=== PATIENT | female | born 1945 | race Caucasian/White ===

== ENCOUNTER 2017-03-29 09:44 | Observation (INO) | payer OTHER ==
[2017-03-29] VITALS (7 sets, daily range): BP systolic 138–183; BP diastolic 62–79; PULSE 68–78; RESP 15–20; TEMP 97.9–98.6; O2SAT 95–98
[~2017-03-29] VITALS: Ht 160 cm; Wt 94.0 kg
[~2017-03-29 09:44] MED LIST: CITRTAB16 PO; GABA100C4 PO; GLUCTAB PO; LOSA25TA31 PO; MULT-65 PO; ONDA1TAB16 PO; TRAM50 PO
[2017-03-29] MEDS ORDERED: LOSA50TA PO (09:57)
[2017-03-29] MEDS ORDERED: ZETI10TA5 PO (09:57)
[2017-03-29] MEDS ORDERED: REST15CA PO (09:57)
[2017-03-29] MEDS ORDERED: ASPIRIN 81 MG CHEW TAB PO ONE (10:00)
[2017-03-29] MEDS ORDERED: SODIUM CHLORIDE 0.9% FLUSH 10 ML FLUSH IVF PRN (10:00)
--- NOTE | 2017-03-29 10:05 | PD ---
HPI . Chest pain shortness of breath Chief Complaint: Chest Pain Time Seen by Provider: 09:51 Travel History International Travel<30 days: No Contact w/Intl Traveler<30days: No Traveled to known affect area: No History of Present Illness HPI This patient presents with the chief complaint of chest pain and shortness of breath. Onset was shortly prior to presentation while doing her normal activities. She described a pressure in her chest which she rated 10/10 and which was associated with shortness of breath, paleness and diaphoresis. She took 2 sublingual nitroglycerin with complete relief of her symptoms. The patient reports episodic chest pain for the past 10 years. She states that she has had 2 negative stress test. She has not glycerin at home that she uses as needed. She states that she normally needs to use nitroglycerin every couple weeks or so. However, over the last 2 weeks, her chest pain has escalated and she is using nitroglycerin daily. The patient states that she takes aspirin but that her last dose of aspirin was a couple of weeks ago. PFSH Past Medical History Cancer: Yes (Endometrial) High Cholesterol: Yes Diabetes: Yes Hypertension: Yes Immunizations Current: Yes : 5 Para: 4 Miscarriage: 1 Dilation and Curettage (D&C): Yes Past Surgical History Hysterectomy: Yes Tonsillectomy: Yes (T&A) Social History Alcohol Use: Yes (Rarely) Tobacco Use: No (Quit 1975) Substance Use: No Allergies-Medications (Allergen,Severity, Reaction): Coded Allergies: acetaminophen (Unverified Allergy, Severe, Itching, 03/29/17) hydrocodone (Unverified Allergy, Severe, Itching, 03/29/17) penicillin G (Unverified Allergy, Severe, Rash, 03/29/17) Reported Meds & Prescriptions Reported Meds & Active Scripts Active Reported Restoril (Temazepam) 15 Mg Cap 15 Mg PO HS PRN Zetia (Ezetimibe) 10 Mg Tab 10 Mg PO DAILY Losartan (Losartan Potassium) 50 Mg Tab 50 Mg PO HS Review of Systems Except as stated in HPI: all other systems reviewed are Neg General / Constitutional: Positive: Other (diaphoresis) Cardiovascular: Positive: Chest Pain or Discomfort Respiratory: Positive: Shortness of Breath Skin: Positive Other (pale) Physical Exam Narrative GENERAL: Patient is awake and alert and in no acute distress. SKIN: warm/dry. Good color. HEAD: Normocephalic. Atraumatic. EYES: Pupils equal and round. No scleral icterus. No injection or drainage. ENT: No nasal bleeding or discharge. Mucous membranes pink and moist. NECK: Trachea midline. Full range of motion without pain.. CARDIOVASCULAR: Regular rate and rhythm. Heart sounds are normal. RESPIRATORY: No accessory muscle use. Clear to auscultation. Breath sounds equal bilaterally. Chest wall is nontender. GASTROINTESTINAL: Abdomen soft. Nontender. Bowel sounds present. Nondistended. MUSCULOSKELETAL: No obvious deformities. NEUROLOGICAL: Awake and alert. No obvious cranial nerve deficits. Motor grossly within normal limits. Normal speech. PSYCHIATRIC: Appropriate mood and affect; insight and judgment normal. Data Data Orders Orders Electrocardiogram (03/29/17 09:51) Basic Metabolic Panel (Bmp) (03/29/17 09:51) Ckmb (Isoenzyme) Profile (03/29/17 09:51) Complete Blood Count With Diff (03/29/17 09:51) Magnesium (Mg) (03/29/17 09:51) Prothrombin Time / Inr (Pt) (03/29/17 09:51) Act Partial Throm Time (Ptt) (03/29/17 09:51) Troponin I (03/29/17 09:51) Chest, Single Ap (03/29/17 09:51) Ecg Monitoring (03/29/17 09:51) Iv Access Insert/Monitor (03/29/17 09:51) Oximetry (03/29/17 09:51) Aspirin Chew (Aspirin Chew) (03/29/17 10:00) Sodium Chloride 0.9% Flush (Ns Flush) (03/29/17 10:00) CKMB (03/29/17 09:54) CKMB% (03/29/17 09:54) Labs Laboratory Tests Test 03/29/17 09:54 White Blood Count 7.2 TH/MM3 Red Blood Count 4.96 MIL/MM3 Hemoglobin 14.4 GM/DL Hematocrit 42.3 % Mean Corpuscular Volume 85.4 FL Mean Corpuscular Hemoglobin 29.1 PG Mean Corpuscular Hemoglobin Concent 34.1 % Red Cell Distribution Width 13.4 % Platelet Count 204 TH/MM3 Mean Platelet Volume 9.7 FL Neutrophils (%) (Auto) 60.6 % Lymphocytes (%) (Auto) 32.0 % Monocytes (%) (Auto) 4.9 % Eosinophils (%) (Auto) 1.8 % Basophils (%) (Auto) 0.7 % Neutrophils # (Auto) 4.4 TH/MM3 Lymphocytes # (Auto) 2.3 TH/MM3 Monocytes # (Auto) 0.3 TH/MM3 Eosinophils # (Auto) 0.1 TH/MM3 Basophils # (Auto) 0.0 TH/MM3 CBC Comment DIFF FINAL Differential Comment Prothrombin Time 10.5 SEC Prothromb Time International Ratio 1.0 RATIO Activated Partial Thromboplast Time 23.8 SEC Blood Urea Nitrogen 32 MG/DL Creatinine 1.23 MG/DL Random Glucose 211 MG/DL Calcium Level 9.5 MG/DL Magnesium Level 2.2 MG/DL Sodium Level 138 MEQ/L Potassium Level 4.4 MEQ/L Chloride Level 102 MEQ/L Carbon Dioxide Level 29.9 MEQ/L Anion Gap 6 MEQ/L Estimat Glomerular Filtration Rate 43 ML/MIN Total Creatine Kinase 105 U/L Creatine Kinase MB 1.3 NG/ML Troponin I LESS THAN 0.02 NG/ML MDM Medical Decision Making Medical Screen Exam Complete: Yes Emergency Medical Condition: Yes Medical Record Reviewed: Yes (the patient does not have any cardiovascular records in our system. No old EKG for comparison. Her listed medical problems include HTN, DM and HL.) Interpretation(s) EKG shows a sinus rhythm with no ST segment elevation or depression. Differential Diagnosis Differential diagnosis of chest pain includes but is not limited to musculoskeletal pain, pulmonary embolism, acute coronary syndrome, pneumonia, pleurisy Narrative Course This patient presents with escalating chest pain over the course of last couple of weeks. Her chest pain sounds like typical cardiac chest pain. She describes a pressure-like sensation which is associated occasionally with shortness of breath, diaphoresis and paleness. My plan will be to rule her out here in the emergency department and then admit her to the chest pain center for further evaluation assuming her initial evaluation is negative. CBC & BMP Diagram 03/29/17 09:54 Calcium Level 9.5, Magnesium Level 2.2 trop < 0.02 Diagnosis Primary Impression: Chest pain Qualified Codes: R07.9 - Chest pain, unspecified Admitting Information Admitting Physician Requests: Observation Condition: Stable Shelia Valera MD Mar 29, 2017 10:05
[2017-03-29 10:29] LABS: AUTOMATED NEUTROPHIL # 4.4 TH/MM3 (1.8-7.7); BASOPHIL % 0.7 % (0.0-2.0); EOSINOPHIL # 0.1 TH/MM3 (0-0.4); EOSINOPHIL % 1.8 % (0.0-4.0); HEMATOCRIT 42.3 % (35.0-46.0); HEMOGLOBIN 14.4 GM/DL (11.6-15.3); LYMPHOCYTE # 2.3 TH/MM3 (1.0-4.8); MEAN CELL VOLUME 85.4 FL (80.0-100.0); MEAN CORPUSCULAR HEMOGLOBIN 29.1 PG (27.0-34.0); MEAN CORPUSCULAR HGB CONC 34.1 % (32.0-36.0); MEAN PLATELET VOLUME 9.7 FL (7.0-11.0); MONO % 4.9 % (0.0-8.0); MONOCYTE # 0.3 TH/MM3 (0-0.9); NEUT % 60.6 % (16.0-70.0); PLATELET COUNT 204 TH/MM3 (150-450); RED BLOOD COUNT 4.96 MIL/MM3 (4.00-5.30); RED CELL DISTRIBUTION WIDTH 13.4 % (11.6-17.2); WHITE BLOOD COUNT 7.2 TH/MM3 (4.0-11.0)
[2017-03-29 10:33] LABS: PROTHROMBIN TIME - PATIENT 10.5 SEC (9.8-11.6)
--- NOTE | 2017-03-29 10:33 | RADRPT ---
EXAM DATE/TIME: 03/29/2017 10:54 [facility] COMPARISON: No previous studies available for comparison. INDICATIONS : Chest pain. MEDICAL HISTORY : None. SURGICAL HISTORY : None. ENCOUNTER: Initial ACUITY: 1 day PAIN SCORE: 6/10 LOCATION: Bilateral chest FINDINGS: A single view of the chest demonstrates the lungs to be symmetrically aerated without evidence of mas s, infiltrate or effusion. The cardiomediastinal contours are unremarkable. Osseous structures are intact. CONCLUSION: No acute disease. Nicholas Fan MD on March 29, 2017 at 10:31 Board Certified Radiologist. This report was verified electronically.
[2017-03-29 10:49] LABS: TROPONIN I LESS THAN 0.02 NG/ML (0.02-0.05)
[2017-03-29 11:08] LABS: BICARBONATE 29.9 MEQ/L (21.0-32.0); BLOOD UREA NITROGEN 32 MG/DL (7-18); CALCIUM 9.5 MG/DL (8.5-10.1); CHLORIDE 102 MEQ/L (98-107); CREATININE 1.23 MG/DL (0.50-1.00); GLOMERULAR FILTRATION RATE 43 ML/MIN (>89); GLUCOSE,RANDOM 211 MG/DL (74-106); MAGNESIUM 2.2 MG/DL (1.5-2.5); SODIUM (NA) 138 MEQ/L (136-145)
[2017-03-29] MEDS ORDERED: NITROGLYCERIN 0.4 MG SL 25 TABS/BTL SL PRN (11:45)
[2017-03-29] MEDS ORDERED: ONDANSETRON HCL 4 MG/2 ML VIAL IV PUSH PRN (11:45)
[2017-03-29] MEDS ORDERED: DEXTROSE 50% IN WATER 50 ML VIAL(D50) IV PUSH PRN (12:00)
[2017-03-29] MEDS ORDERED: GLUCAGON 1 MG/ML VIAL OTHER PRN (12:00)
[2017-03-29] MEDS: INSULIN ASPART SUPPLEMENTAL SCALE SQ SCH ×3 (12:00→21:00)
[2017-03-29] MEDS ORDERED: SODIUM CHLORID 0.9% 500 ML INJ 500 ML IV SCH (12:00)
[2017-03-29] MEDS ORDERED: TRAM50TA PO (12:24)
[2017-03-29] MEDS ORDERED: NITROGLYCERIN 2% OINT 1 GM PACKET TOPICAL ONE (12:30)
[2017-03-29 14:15] LABS: TROPONIN I 0.03 NG/ML (0.02-0.05)
[2017-03-29 14:47] LABS: TROPONIN I 0.03 NG/ML (0.02-0.05)
--- NOTE | 2017-03-29 14:51 | PD.CARD.PN ---
Subjective Subjective Remarks 71 YO LADY WITH VERY SUGGESTIVE HISTORY FOR UNSTABLE ANGINA. SHE HAS BEEN HAVING SOME CHEST DISCOMFORT OVER THE LAST SEVERAL WEEKS BUT THIS HAS NOT BEEN CLEARLY RELATED TO EXERTION ALTHOUGH SHE DOES FEEL STRESS HAS PLAYED A ROLE. HOWEVER, TODAY AFTER CLEANING THE HOUSE SHE WAS GETTING INTO THE SHOWER SHE DEVELOPED CRUSHING MID CHEST PAIN, FELT DIZZY, NAUSEAS, AND BROKE OUT IN A DRENCHING COLD SWEAT. SHE TOOK NTG WITHOUT RELIEF AND CALLED [facility]. SHE HAD A CATH ABOUT 10 YEARS AGO AND WAS TOLD SHE HAD SOME MILD BLOCKAGE IN THE LEFT LOWER PART BUT SHE HAD A TREADMILL ABOUT 6 YEARS AGO AND WAS TOLD IT WAS OK CRF DM Objective Medications Current Medications Medications (Trade) Dose Ordered Sig/Nesha Route Start Time Stop Time Status Last Admin (NS Flush) 2 ml UNSCH PRN IVF 03/29/17 10:00 (NS Flush) 2 ml BID IV FLUSH 03/29/17 21:00 (Zofran Inj) 4 mg Q6H PRN IV PUSH 03/29/17 11:45 (Nitrostat Sl) 0.4 mg Q5M PRN SL 03/29/17 11:45 (Aspirin) 325 mg DAILY PO 03/30/17 09:00 Sodium Chloride 500 ml @ 100 mls/hr Q5H IV 03/29/17 12:00 03/29/17 16:59 03/29/17 13:01 (D50w (Vial) Inj) 50 ml UNSCH PRN IV PUSH 03/29/17 12:00 (Glucagon Inj) 1 mg UNSCH PRN OTHER 03/29/17 12:00 (NovoLOG SUPPLEMENTAL SCALE) 1 ACHS SLIDING SCALE SQ 03/29/17 12:00 (Zetia) 10 mg DAILY PO 03/29/17 21:00 (Cozaar) 50 mg HS PO 03/29/17 21:00 Vital Signs / I&O Vital Signs Date Time Temp Pulse Resp B/P (MAP) Pulse Ox O2 Delivery O2 Flow Rate FiO2 03/29/17 13:10 97.9 68 16 163/74 (103) 95 03/29/17 12:10 03/29/17 11:38 74 15 138/ 97 Room Air 03/29/17 09:50 97.9 78 16 183/79 (113) 96 Room Air Physical Exam PERTINENT: SOFT 2/6 SYST M TRACE EDEMA NEUROPATHY Laboratory Laboratory Tests Test 03/29/17 09:54 03/29/17 12:55 03/29/17 14:02 White Blood Count 7.2 TH/MM3 Red Blood Count 4.96 MIL/MM3 Hemoglobin 14.4 GM/DL Hematocrit 42.3 % Mean Corpuscular Volume 85.4 FL Mean Corpuscular Hemoglobin 29.1 PG Mean Corpuscular Hemoglobin Concent 34.1 % Red Cell Distribution Width 13.4 % Platelet Count 204 TH/MM3 Mean Platelet Volume 9.7 FL Neutrophils (%) (Auto) 60.6 % Lymphocytes (%) (Auto) 32.0 % Monocytes (%) (Auto) 4.9 % Eosinophils (%) (Auto) 1.8 % Basophils (%) (Auto) 0.7 % Neutrophils # (Auto) 4.4 TH/MM3 Lymphocytes # (Auto) 2.3 TH/MM3 Monocytes # (Auto) 0.3 TH/MM3 Eosinophils # (Auto) 0.1 TH/MM3 Basophils # (Auto) 0.0 TH/MM3 CBC Comment DIFF FINAL Differential Comment Prothrombin Time 10.5 SEC Prothromb Time International Ratio 1.0 RATIO Activated Partial Thromboplast Time 23.8 SEC Blood Urea Nitrogen 32 MG/DL Creatinine 1.23 MG/DL Random Glucose 211 MG/DL Calcium Level 9.5 MG/DL Magnesium Level 2.2 MG/DL Sodium Level 138 MEQ/L Potassium Level 4.4 MEQ/L Chloride Level 102 MEQ/L Carbon Dioxide Level 29.9 MEQ/L Anion Gap 6 MEQ/L Estimat Glomerular Filtration Rate 43 ML/MIN Total Creatine Kinase 105 U/L 94 U/L Creatine Kinase MB 1.3 NG/ML Troponin I LESS THAN 0.02 NG/ML 0.03 NG/ML Imaging Last 24 hours Impressions Chest X-Ray 03/29/17 0951 Signed Impressions: Service Date/Time: Wednesday, March 29, 2017 10:54 - CONCLUSION: No acute disease. Nicholas Fan MD Assessment and Plan Problem List: (1) Chest pain at rest ICD Codes: R07.9 - Chest pain, unspecified (2) Diabetes ICD Codes: E11.9 - Type 2 diabetes mellitus without complications (3) Renal failure ICD Codes: N19 - Unspecified kidney failure (4) Neuropathy ICD Codes: G62.9 - Polyneuropathy, unspecified Assessment and Plan NEW ONSET OF CP SUGGESTIVE OF ANGINA DM CRF Code Status FULL CODE Discussed Condition With PATIENT Wojciech Pimentel MD Mar 29, 2017 14:51
[2017-03-29] MEDS ORDERED: traMADol HCL 50 MG TAB PO PRN (15:30)
[2017-03-29] MEDS ORDERED: TEMAZEPAM 15 MG CAP PO PRN (15:30)
[2017-03-29 16:53] LABS: TROPONIN I 0.03 NG/ML (0.02-0.05)
--- NOTE | 2017-03-29 20:37 | EKG ---
Date Performed: 03/29/2017 Time Performed: 09:58:30 PTAGE: 71 years EKG: Sinus rhythm NORMAL ECG NO PREVIOUS TRACING DOCTOR: Triny Carey Interpretating Date/Time 03/29/2017 20:36:11
--- NOTE | 2017-03-29 20:37 | EKG ---
Date Performed: 03/29/2017 Time Performed: 09:58:30 PTAGE: 71 years EKG: Sinus rhythm NORMAL ECG NO PREVIOUS TRACING DOCTOR: Triny Carey Interpretating Date/Time 03/29/2017 20:36:11
--- NOTE | 2017-03-29 20:37 | EKG ---
Date Performed: 03/29/2017 Time Performed: 09:58:30 PTAGE: 71 years EKG: Sinus rhythm NORMAL ECG NO PREVIOUS TRACING DOCTOR: Triny Carey Interpretating Date/Time 03/29/2017 20:36:11
[2017-03-29] MEDS ORDERED: LOSARTAN 50 MG TAB PO SCH (21:00)
[2017-03-29] MEDS: SODIUM CHLORIDE 0.9% FLUSH 10 ML FLUSH IV FLUSH SCH (21:01)
[2017-03-29] MEDS: EZETIMIBE 10 MG TAB PO SCH (21:02)
[2017-03-29] MEDS: NITROGLYCERIN 2% OINT 1 GM PACKET TOPICAL SCH (21:02)
[2017-03-30] MEDS: NITROGLYCERIN 2% OINT 1 GM PACKET TOPICAL SCH ×2 (03:15→06:00)
[2017-03-30 06:57] LABS: BICARBONATE 25.8 MEQ/L (21.0-32.0); CALCIUM 8.6 MG/DL (8.5-10.1); CREATININE 0.94 MG/DL (0.50-1.00)
[2017-03-30 07:29] VITALS: BP 143/70; PULSE 70; RESP 16; TEMP 98; O2SAT 98
[2017-03-30 07:40] VITALS: O2SAT 95
[2017-03-30 08:00] VITALS: PULSE 68
[2017-03-30] MEDS: INSULIN ASPART SUPPLEMENTAL SCALE SQ SCH ×2 (08:00→12:00)
--- NOTE | 2017-03-30 08:09 | PD.CARD.PN ---
Subjective Subjective Remarks Chart reviewed and patient interviewed. Will plan ETT Objective Medications Current Medications Medications (Trade) Dose Ordered Sig/Nesha Route Start Time Stop Time Status Last Admin (NS Flush) 2 ml UNSCH PRN IVF 03/29/17 10:00 (NS Flush) 2 ml BID IV FLUSH 03/29/17 21:00 03/29/17 21:01 (Zofran Inj) 4 mg Q6H PRN IV PUSH 03/29/17 11:45 (Nitrostat Sl) 0.4 mg Q5M PRN SL 03/29/17 11:45 (Aspirin) 325 mg DAILY PO 03/30/17 09:00 (D50w (Vial) Inj) 50 ml UNSCH PRN IV PUSH 03/29/17 12:00 (Glucagon Inj) 1 mg UNSCH PRN OTHER 03/29/17 12:00 (NovoLOG SUPPLEMENTAL SCALE) 1 ACHS SLIDING SCALE SQ 03/29/17 12:00 03/29/17 21:00 (Zetia) 10 mg DAILY PO 03/29/17 21:00 03/29/17 21:02 (Cozaar) 50 mg HS PO 03/29/17 21:00 03/29/17 21:02 (Restoril) 15 mg HS PRN PO 03/29/17 15:30 (Ultram) 50 mg BID PRN PO 03/29/17 15:30 03/29/17 21:25 Vital Signs / I&O Vital Signs Date Time Temp Pulse Resp B/P (MAP) Pulse Ox O2 Delivery O2 Flow Rate FiO2 03/30/17 07:40 95 21 03/30/17 07:29 98.0 70 16 143/70 (94) 98 03/29/17 21:16 98 03/29/17 19:42 98.6 77 20 138/62 (87) 95 03/29/17 16:04 98.0 72 16 140/73 (95) 96 03/29/17 15:30 73 03/29/17 13:10 97.9 68 16 163/74 (103) 95 03/29/17 12:10 03/29/17 11:38 74 15 138/ 97 Room Air 03/29/17 09:50 97.9 78 16 183/79 (113) 96 Room Air I/O 10/29/17 10/03/29/17 03/30/17 03/30/17 03/30/17 07:00 15:00 23:00 07:00 15:00 23:00 Intake Total 400 ml Balance 400 ml Intake IV Total 400 ml # Voids 1 # Bowel Movements 1 Laboratory Laboratory Tests Test 03/29/17 09:54 03/29/17 12:55 03/29/17 14:02 03/29/17 15:55 White Blood Count 7.2 TH/MM3 Red Blood Count 4.96 MIL/MM3 Hemoglobin 14.4 GM/DL Hematocrit 42.3 % Mean Corpuscular Volume 85.4 FL Mean Corpuscular Hemoglobin 29.1 PG Mean Corpuscular Hemoglobin Concent 34.1 % Red Cell Distribution Width 13.4 % Platelet Count 204 TH/MM3 Mean Platelet Volume 9.7 FL Neutrophils (%) (Auto) 60.6 % Lymphocytes (%) (Auto) 32.0 % Monocytes (%) (Auto) 4.9 % Eosinophils (%) (Auto) 1.8 % Basophils (%) (Auto) 0.7 % Neutrophils # (Auto) 4.4 TH/MM3 Lymphocytes # (Auto) 2.3 TH/MM3 Monocytes # (Auto) 0.3 TH/MM3 Eosinophils # (Auto) 0.1 TH/MM3 Basophils # (Auto) 0.0 TH/MM3 CBC Comment DIFF FINAL Differential Comment Prothrombin Time 10.5 SEC Prothromb Time International Ratio 1.0 RATIO Activated Partial Thromboplast Time 23.8 SEC Blood Urea Nitrogen 32 MG/DL Creatinine 1.23 MG/DL Random Glucose 211 MG/DL Calcium Level 9.5 MG/DL Magnesium Level 2.2 MG/DL Sodium Level 138 MEQ/L Potassium Level 4.4 MEQ/L Chloride Level 102 MEQ/L Carbon Dioxide Level 29.9 MEQ/L Anion Gap 6 MEQ/L Estimat Glomerular Filtration Rate 43 ML/MIN Total Creatine Kinase 105 U/L 94 U/L 84 U/L 82 U/L Creatine Kinase MB 1.3 NG/ML Troponin I LESS THAN 0.02 NG/ML 0.03 NG/ML 0.03 NG/ML 0.03 NG/ML Test 03/30/17 05:20 Blood Urea Nitrogen 26 MG/DL Creatinine 0.94 MG/DL Random Glucose 119 MG/DL Calcium Level 8.6 MG/DL Sodium Level 140 MEQ/L Potassium Level 4.0 MEQ/L Chloride Level 106 MEQ/L Carbon Dioxide Level 25.8 MEQ/L Anion Gap 8 MEQ/L Estimat Glomerular Filtration Rate 59 ML/MIN Imaging Last 24 hours Impressions Chest X-Ray 03/29/17 0951 Signed Impressions: Service Date/Time: Wednesday, March 29, 2017 10:54 - CONCLUSION: No acute disease. Nicholas Fan MD Assessment and Plan Problem List: (1) Chest pain at rest ICD Codes: R07.9 - Chest pain, unspecified (2) Diabetes ICD Codes: E11.9 - Type 2 diabetes mellitus without complications (3) Renal failure ICD Codes: N19 - Unspecified kidney failure (4) Neuropathy ICD Codes: G62.9 - Polyneuropathy, unspecified Lionel Adams MD Mar 30, 2017 08:09
[2017-03-30] MEDS: SODIUM CHLORIDE 0.9% FLUSH 10 ML FLUSH IV FLUSH SCH (08:24)
[2017-03-30] MEDS: EZETIMIBE 10 MG TAB PO SCH (08:24)
--- NOTE | 2017-03-30 08:39 | MH ---
cc: JN ALARCON MD DATE OF ADMISSION: 03/29/2017 CHIEF COMPLAINT: Chest pain. HISTORY OF PRESENT ILLNESS: The patient reported to the emergency room today via [facility] after an onset of a crushing type chest discomfort across her anterior chest into her left upper arm and left jaw. She had associated dizziness, diaphoresis and had difficulty catching her breath. She did have nitroglycerin at home; she took two of those sublingual 5 minutes apart and when her chest discomfort did not start to ease, her neighbor called [facility]. She notes that by the time [facility] got there a couple of minutes later, her discomfort went from a 9/10 on a 0-to-10 pain scale down to a 5/10. She denies any nausea or vomiting. At time of assessment in the emergency room, she denies any chest discomfort but states she feels a strange sensation across her chest like a tingling. She does not recall receiving any further nitroglycerin in the [facility] or the ER. She did receive an aspirin after her arrival here to the ER. She denies any history of coronary artery disease but states that she has been having discomfort in her chest for the last couple of weeks intermittently, she believes every couple of days. Initially she states it is brought on with "stress". 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 She has however continued to get the discomfort sometimes brought on with exertion and the others at rest. She has nitroglycerin sublingual at home, she believes given to her by her primary care physician and states that she has been using one for each episode of discomfort that she describes as a light pressure with an ache in her left jaw and left upper arm that is relieved with one nitroglycerin. Today's episode however she states was much more severe. She has not contacted her primary care physician regarding these episodes of chest discomfort as she states she has an appointment with him for her usual followup tomorrow morning. She has had stress testing in the past however she cannot recall how long ago that was, she believes it is been years but endorses that she has difficulty with her memory and cannot recall. She is unable to recall the fabric coating supervisor's name that she has seen in the past. She endorses she does not follow regularly with a fabric coating supervisor. She does have a history of type 2 diabetes for which she is not on any type of medicine. She has been trying to work on her diet but states that it has been very difficult and she has not been successful. She endorses her primary care physician has wanted her to be on medication but she has declined. She recently started Zetia for cholesterol management per the urging of her primary care physician, she believes about four months or so ago and recently had blood work for which she was to follow up with him tomorrow. She endorses allergies to statins with severe myalgias. She also began taking losartan for hypertension 50 mg daily. She does not monitor it at home. Her blood pressure on arrival to the ER was 183/79. She endorses also a history of chronic kidney disease stage III and states that it has been stable, does not recall her last renal function. PAST MEDICAL HISTORY: 1. Dyslipidemia. 2. Type 2 diabetes mellitus. 3. Hypertension. 4. Obesity with a BMI of 36.7. 5. Endometrial uterine cancer with radiation and history of a complete hysterectomy. 6. Tonsillectomy and adenoidectomy as a child. 7. Peripheral neuropathy primarily in her feet but some in her fingers. 8. She endorses a remote history of Crohn's disease diagnosed with colonoscopy for which she is on no medications. She states she avoids Splenda secondary to that. 9. Insomnia. 10. Positive situational stressors. 11. Remote history of tobacco use; quit approximately 42 years ago. SOCIAL HISTORY: She is . She lives in the [place] area. She is retired. She was a past tobacco user of two to three packs per day x12 years and quit approximately 42 years ago. Denies substance abuse. Endorses mild use of alcohol in the past but denies alcohol use at all for the last year. She does not exercise regularly and endorses sporadic exercise, did recently joint the [employer] but has only been once last week. ALLERGIES: 1. STATINS CAUSE MYALGIAS. 2. ACETAMINOPHEN / HYDROCODONE - SEVERE ITCHING. 3. PENICILLIN - RASH. 4. SPLENDA - GASTROINTESTINAL SYMPTOMS. MEDICATIONS: 1. Temazepam 15 milligrams p.o. at bedtime PRN insomnia. 2. Zetia 10 milligrams p.o. daily at bedtime. 3. Losartan 50 milligrams p.o. daily at bedtime. 4. Tramadol 50 milligrams p.o. twice a day PRN neuropathy pain, primarily takes at bedtime. 5. Was on aspirin 81 milligrams p.o. daily but stopped that approximately two weeks ago secondary to bruising on her arms. 6. She is currently on no medications for diabetes. REVIEW OF SYSTEMS: A ten-point review of systems was completed and is essentially positive for what is discussed above in the history of present illness and an otherwise negative system review. PHYSICAL EXAMINATION: VITAL SIGNS: Stable. Blood pressure at the time of assessment systolic in the 130s and diastolic in the 70s. Pulse 70s, respiratory rate normal at 16. FIO2 on room air 97%. Afebrile on admission to the emergency room. GENERAL: A very pleasant 71-year-old obese female lying quietly in bed alert and oriented, pleasant, friendly, cooperative and currently in no acute distress. She does appear younger than her stated age. HEAD, EYES, EARS, NOSE, THROAT: Normocephalic and atraumatic. Eyes - sclerae are clear, nonicteric, extraocular muscles intact. Glasses on. NECK: The neck is supple. Trachea is midline. No jugular venous distention or carotid bruits. CARDIOVASCULAR: S1-S2, regular rate and rhythm, no S3, S4, rub, gallop or appreciable murmur. RESPIRATORY: The lungs are clear to auscultation bilaterally. Good air movement. No wheezes, rales or rhonchi. All clear to auscultation bilaterally. ABDOMEN: Abdomen is softly obese, normoactive bowel sounds throughout. No tenderness on palpation. No guarding, rigidity or rebound tenderness. EXTREMITIES: Appears to move all extremities well. No lower extremity edema. 2+ dorsalis pedis and posterior tibial pulses. SKIN: Warm and dry. No obvious rashes. MUSCULOSKELETAL: She is moving all extremities well. Gait is not observed as she is lying quietly in bed. NEUROLOGIC: Cranial nerves II through XII appear grossly intact. Motor skill is grossly normal. PSYCHIATRIC: Insight and judgment appear normal. She is pleasant. Mildly anxious affect. Otherwise normal. LABORATORY data: CBC is unremarkable. Coag profile with a PTT 23.8 otherwise unremarkable. Basic chemistries, BUN 32, creatinine 1.23, GFR is 43, random blood sugar 211. First set of cardiac enzymes is negative. IMAGING STUDIES: Chest film showing no acute cardiopulmonary disease. EKGS: The first EKG showing normal sinus rhythm, no ischemia. ASSESSMENT AND PLAN: 1. Chest pain in a patient with multiple risk factors for coronary artery disease. First cardiac enzymes and EKG normal. However, her history is concerning for anginal symptoms. Nitro paste 1 inch is ordered. Continued to rule out with completion of serial EKGs and enzymes. The patient will be seen and evaluated by Dr. Alarcon in cardiology and will be continued on telemetry monitoring and further recommendations to follow. The patient was already given aspirin in the ER and is ordered 325 mg of aspirin daily. 2. Hypertension. Continue losartan as prior. Continue monitoring of blood pressure and is managed by primary care. 3. Dyslipidemia. She has had outpatient blood work, unsure of her recent LDL. Started Zetia secondary to urging from her primary care physician. Continue. 4. Type 2 diabetes mellitus. Currently attempting management with diet and exercise; however, the patient readily admits that she is failing to do well. She is unsure of her last hemoglobin A1c. Random blood sugar 211. The patient will be placed on Accu-Cheks and sliding scale with low-dose insulin during admission. The patient is urged to reconsider medication for treatment of her diabetes. She does have primary care physician that she follows with, Dr. Caceres. 5. Chronic kidney disease, stage III. Unsure of her last renal function and no prior lab work in the EHR. She is ordered 500 mL of saline at 100 mL/hour x1 bag only. Renal function can be rechecked in the a.m. This may be her usual. Further disposition will follow per cardiology recommendations. Dictated by HALEY Alcazar. MD YAMILE Cash/SAKINA /12:36 PM /8:37 AM
[2017-03-30] MEDS ORDERED: ASPIRIN 325 MG TAB PO SCH (09:00)
[2017-03-30 11:12] VITALS: BP 147/71; PULSE 69; RESP 16; TEMP 98.1; O2SAT 95
[2017-03-30] MEDS ORDERED: REGADENOSON INJ 0.4 MG/5 ML SYR ONE (13:31)
[2017-03-30 15:21] VITALS: PULSE 86
--- NOTE | 2017-03-30 15:25 | RADRPT ---
EXAM DATE/TIME: 03/30/2017 12:58 [place] COMPARISON: No previous studies available for comparison. INDICATIONS : Anterior chest pain with shortness of breath and dizziness for one day. Angina. DOSE: 25.7 mCi Tc99m Myoview at stress. 8.7 mCi Tc99m Myoview at rest. 0.4 mg Lexiscan STRESS SYMPTOMS: Lightheaded. EJECTION FRACTION: 69% MEDICAL HISTORY : Diabetes mellitus type 2. Hypertension. SURGICAL HISTORY : Hysterectomy. Tonsillectomy. ENCOUNTER: Initial ACUITY: 1 day PAIN SCALE: 9/10 LOCATION: TECHNIQUE: The patient underwent pharmacologic stress with infusion of prescribed dose. Continuous ECG tracing was monitored during stress. Gated SPECT imaging was performed after stress and conventional SPECT i maging was performed at rest. The examination was performed on a SPECT/CT scanner, both attenuation and non-corrected datasets were reviewed. FINDINGS: DISTRIBUTION: The maximum perfused segment at stress is in the septum and inferior PERFUSION STUDY: The pattern of perfusion at stress is within normal limits. GATED STUDY: There is intact wall motion and thickening without hypokinetic or dyskinetic segments. CONCLUSION: Negative for stress-induced ischemia. RISK CATEGORY: Low (<1% Annual Mortality Rate) Mick Wills MD FACR on March 30, 2017 at 15:22 Board Certified Radiologist. This report was verified electronically.
--- NOTE | 2017-03-30 15:29 | HHI.DCPOC ---
Discharge Care Plan Diagnosis: (1) Atypical chest pain (2) Situational stress (3) Hypertension Goals to Promote Your Health * To prevent worsening of your condition and complications * To maintain your health at the optimal level Directions to Meet Your Goals Take your medications as prescribed Follow your dietary instruction Follow activity as directed Keep your appointments as scheduled Take your immunizations and boosters as scheduled If your symptoms worsen call your PCP, if no PCP go to Urgent Care Center or Emergency Room Smoking is Dangerous to Your Health. Avoid second hand smoke Call the 24-hour hour crisis hotline for domestic abuse at [facility] Mar 30, 2017 15:29
--- NOTE | 2017-03-30 15:29 | HHI.DCPOC ---
Discharge Care Plan Diagnosis: (1) Atypical chest pain (2) Situational stress (3) Hypertension Goals to Promote Your Health * To prevent worsening of your condition and complications * To maintain your health at the optimal level Directions to Meet Your Goals Take your medications as prescribed Follow your dietary instruction Follow activity as directed Keep your appointments as scheduled Take your immunizations and boosters as scheduled If your symptoms worsen call your PCP, if no PCP go to Urgent Care Center or Emergency Room Smoking is Dangerous to Your Health. Avoid second hand smoke Call the 24-hour hour crisis hotline for domestic abuse at [facility] Mar 30, 2017 15:29
--- NOTE | 2017-03-30 15:29 | HHI.DCPOC ---
Discharge Care Plan Diagnosis: (1) Atypical chest pain (2) Situational stress (3) Hypertension Goals to Promote Your Health * To prevent worsening of your condition and complications * To maintain your health at the optimal level Directions to Meet Your Goals Take your medications as prescribed Follow your dietary instruction Follow activity as directed Keep your appointments as scheduled Take your immunizations and boosters as scheduled If your symptoms worsen call your PCP, if no PCP go to Urgent Care Center or Emergency Room Smoking is Dangerous to Your Health. Avoid second hand smoke Call the 24-hour hour crisis hotline for domestic abuse at [facility] Mar 30, 2017 15:29
[2017-03-30 15:31] VITALS: BP 145/67; PULSE 79; RESP 16; TEMP 98; O2SAT 96
--- NOTE | 2017-03-30 15:35 | EKG ---
Date Performed: 03/29/2017 Time Performed: 13:15:52 PTAGE: 71 years EKG: Sinus rhythm NORMAL ECG PREVIOUS TRACING : 03/29/2017 09.58 Since previous tracing, no significant change noted DOCTOR: Lionel Adams Interpretating Date/Time 03/30/2017 15:33:49
--- NOTE | 2017-03-30 15:35 | EKG ---
Date Performed: 03/29/2017 Time Performed: 16:01:41 PTAGE: 71 years EKG: Sinus rhythm ARM LEADS REVERSED ATYPICAL ECG PREVIOUS TRACING : 03/29/2017 13.15 DOCTOR: Lionel Adams Interpretating Date/Time 03/30/2017 15:33:36
--- NOTE | 2017-03-30 15:37 | TR ---
Date Performed: 03/30/2017 Time Performed: 09:32:56 DOCTOR: Lionel Adams DRUG LIST: CLINICAL HISTORY: REASON FOR TEST: REASON FOR ENDING: OBSERVATION: CONCLUSION: Daniel protocol completed. Stopped sec to reaching target heart rate and leg fatigue. Maximum GS=521 Target HR Achieved=87.0% Maximum HS=711/82 Total Exercise Time=6:36. Rare PAC. Good ex ercise tolerance. Hypertensive bp response. St segments upsolping J point depression. Recovery quick and unremarkable. COMMENTS: ST depression present with upsloping ST segments. Probably normal but will get nuclear scanning to r/o occult CAD
--- NOTE | 2017-03-30 15:37 | TR ---
Date Performed: 03/30/2017 Time Performed: 09:32:56 DOCTOR: Lionel Adams DRUG LIST: CLINICAL HISTORY: REASON FOR TEST: REASON FOR ENDING: OBSERVATION: CONCLUSION: Daniel protocol completed. Stopped sec to reaching target heart rate and leg fatigue. Maximum DS=629 Target HR Achieved=87.0% Maximum XB=737/82 Total Exercise Time=6:36. Rare PAC. Good ex ercise tolerance. Hypertensive bp response. St segments upsolping J point depression. Recovery quick and unremarkable. COMMENTS: ST depression present with upsloping ST segments. Probably normal but will get nuclear scanning to r/o occult CAD
--- NOTE | 2017-03-30 15:37 | TR ---
Date Performed: 03/30/2017 Time Performed: 09:32:56 DOCTOR: Lionel Adams DRUG LIST: CLINICAL HISTORY: REASON FOR TEST: REASON FOR ENDING: OBSERVATION: CONCLUSION: Daniel protocol completed. Stopped sec to reaching target heart rate and leg fatigue. Maximum XQ=949 Target HR Achieved=87.0% Maximum CM=126/82 Total Exercise Time=6:36. Rare PAC. Good ex ercise tolerance. Hypertensive bp response. St segments upsolping J point depression. Recovery quick and unremarkable. COMMENTS: ST depression present with upsloping ST segments. Probably normal but will get nuclear scanning to r/o occult CAD
--- NOTE | 2017-03-31 17:28 | TR ---
Date Performed: 03/30/2017 Time Performed: 13:52:22 DOCTOR: Mely Perez DRUG LIST: CLINICAL HISTORY: REASON FOR TEST: REASON FOR ENDING: OBSERVATION: CONCLUSION: Lexiscan stress test was performed under standard four minute protocol. Radionuclid e was injected one minute prior to ending the test. No electrocardiographic abormalities were present to suggest ischemia. Nuclear imaging and interpretation are pending. COMMENTS:
== END 2017-03-30 17:58 | disposition home or self-care (01) ==
LOC: NEPE 09:44 → NEDA 11:15 → NEPFCDU 12:38 → NEPGCP 18:51
PROVIDERS: ADMIT Internal Medicine Interventional Cardiology; ATTEND Internal Medicine Interventional Cardiology
DX: R07.9 Chest pain, unspecified (principal); I12.9 Hypertensive chronic kidney disease with stage 1 through stage 4 chronic kidney disease, or unspecified chronic kidney disease; N18.3 Chronic kidney disease, stage 3 (moderate); E11.22 Type 2 diabetes mellitus with diabetic chronic kidney disease; G62.9 Polyneuropathy, unspecified; E78.5 Hyperlipidemia, unspecified; G47.00 Insomnia, unspecified; K50.90 Crohn's disease, unspecified, without complications; R94.31 Abnormal electrocardiogram [ECG] [EKG]; E66.9 Obesity, unspecified; Z68.36 Body mass index [BMI] 36.0-36.9, adult; Z79.82 Long term (current) use of aspirin; Z87.891 Personal history of nicotine dependence; Z85.42 Personal history of malignant neoplasm of other parts of uterus
CPT/HCPCS: 71010; 78452; 80048; 82550; 82552; 82948; 83735; 84484; 85025; 85610; 85730; 93005; 93017; 96360; 96361; 96372; 99285; A9502; G0378; J1815; J2785; J7040